=== PATIENT | male | born 1975 | race Caucasian/White ===

== ENCOUNTER 2021-07-08 14:43 | Outpatient (CLI) | payer OTHER, SELFPAY ==
--- NOTE | ~2021-07-08 | US_ITS ---
EXAMINATION: US thyroid EXAM DATE: 07/08/2021 15:20 INDICATION: Ren's thyroiditis. TECHNIQUE: Multiple grayscale and Doppler images of the thyroid were obtained (by a technologist who performed the scan) and subsequently reviewed. Individual nodules and recommendations may be reporte d in accordance with TI-RADS system as designated by the 2017 ACR White Paper TI-RADS committee. Comp arison is made to prior examination from 10/06/2016. FINDINGS: The right thyroid lobe measures 5.3 x 2.1 x 2.1 cm, the left measuring 4.8 x 1.8 x 1.7 cm. Right thyr oid lobe dimensions are mildly increased in size compared to 2017. The thyroid parenchyma has also be come more heterogeneous. No definite focal nodules identified. IMPRESSION: Enlarged heterogeneous thyroid parenchyma. Reviewed, dictated and finalized at location B. PRODUCTION SUPERVISOR
== END 2021-07-08 14:44 | disposition home or self-care (01) ==
LOC: ANHIMG 14:47
PROVIDERS: PCP Emergency Medicine; Visit Provider Emergency Medicine
DX: E06.3 Autoimmune thyroiditis (principal)
CPT/HCPCS: 76536